=== PATIENT | male | born 1965 | race Caucasian/White ===

== ENCOUNTER 2017-11-09 09:41 | Outpatient (RCR) | payer MEDICARE, MEDICAID | END 2017-12-03 | LOC: M PT 09:41 | DX: G80.1 Spastic diplegic cerebral palsy (principal); S39.012A Strain of muscle, fascia and tendon of lower back, initial encounter; X58.XXXA Exposure to other specified factors, initial encounter; Y92.9 Unspecified place or not applicable | CPT/HCPCS: 97110 ==

== ENCOUNTER 2017-12-04 10:49 | Outpatient (RCR) | payer MEDICARE, MEDICAID | END 2018-01-03 | LOC: M PT 12-06 10:54 | DX: G80.1 Spastic diplegic cerebral palsy (principal); S39.012A Strain of muscle, fascia and tendon of lower back, initial encounter; X58.XXXA Exposure to other specified factors, initial encounter; Y92.9 Unspecified place or not applicable | CPT/HCPCS: 97110 ==

== ENCOUNTER 2018-01-08 11:05 | Outpatient (RCR) | payer MEDICARE, MEDICAID | END 2018-02-02 | LOC: M PT 11:05 | DX: Z51.89 Encounter for other specified aftercare (principal); M54.5 Low back pain; G80.9 Cerebral palsy, unspecified | CPT/HCPCS: 97110 ==

== ENCOUNTER 2018-02-05 11:49 | Outpatient (RCR) | payer MEDICARE, MEDICAID | END 2018-03-05 | LOC: M PT 02-13 11:00 | DX: Z51.89 Encounter for other specified aftercare (principal); G80.9 Cerebral palsy, unspecified; R26.2 Difficulty in walking, not elsewhere classified; M54.5 Low back pain | CPT/HCPCS: 97110 ==

== ENCOUNTER 2018-03-07 11:23 | Outpatient (RCR) | payer MEDICARE, MEDICAID | END 2018-04-05 | LOC: M PT 11:23 | DX: Z51.89 Encounter for other specified aftercare (principal); S39.012A Strain of muscle, fascia and tendon of lower back, initial encounter; G80.1 Spastic diplegic cerebral palsy | CPT/HCPCS: 97110 ==

== ENCOUNTER 2018-04-11 09:48 | Outpatient (RCR) | payer MEDICARE, MEDICAID | END 2018-05-05 | LOC: M PT 04-16 10:43 | DX: Z51.89 Encounter for other specified aftercare (principal); G80.1 Spastic diplegic cerebral palsy | CPT/HCPCS: 97110 ==

== ENCOUNTER 2018-05-07 10:56 | Outpatient (RCR) | payer MEDICARE, MEDICAID | END 2018-06-05 | LOC: M PT 10:56 | DX: G80.1 Spastic diplegic cerebral palsy (principal); M54.5 Low back pain | CPT/HCPCS: 97110 ==

== ENCOUNTER 2018-06-06 11:07 | Outpatient (RCR) | payer MEDICARE, MEDICAID | END 2018-07-05 | LOC: M PT 11:07 | DX: M54.5 Low back pain (principal); G80.1 Spastic diplegic cerebral palsy | CPT/HCPCS: 97110 ==

== ENCOUNTER 2018-11-27 10:15 | Outpatient (RCR) | payer MEDICARE, MEDICAID | END 2018-12-03 | LOC: M PT 10:15 | PROVIDERS: ATTEND Orthopaedic Surgery | DX: M54.5 Low back pain (principal); G80.1 Spastic diplegic cerebral palsy ==

== ENCOUNTER 2019-01-01 10:15 | Outpatient (RCR) | payer MEDICARE, MEDICAID | END 2019-01-03 | LOC: M PT 10:15 | PROVIDERS: ATTEND Orthopaedic Surgery | DX: M54.5 Low back pain (principal); G80.1 Spastic diplegic cerebral palsy ==

== ENCOUNTER 2019-01-29 10:15 | Outpatient (RCR) | payer MEDICARE, MEDICAID | END 2019-02-02 | LOC: M PT 10:15 | PROVIDERS: ATTEND Orthopaedic Surgery | DX: M54.5 Low back pain (principal); G80.1 Spastic diplegic cerebral palsy ==

== ENCOUNTER → 2019-02-21 | Outpatient (REF) | payer MEDICARE, MEDICAID ==
[2019-02-21 11:56] LABS: BASO # 0.1 10^3/uL (0.0-0.2); BASO % 0.9 % (0.0-1.0); EOS # 0.2 10^3/uL (0.0-0.50); EOS % 3.9 % (0.0-3.0); HEMATOCRIT 47.3 % (42.0-52.0); HEMOGLOBIN 15.6 g/dl (13.5-17.5); LYMPH # 1.8 10^3/uL (1.5-4.5); LYMPH % 30.8 % (24.0-44.0); MEAN CORPUSCULAR HEMOGLOBIN 29.6 pg (27.0-33.0); MEAN CORPUSCULAR VOLUME 89.8 fl (80.0-96.0); MONO # 0.4 10^3/uL (0.0-0.8); MONO % 6.9 % (0.0-5.0); NEUTROPHILS # 3.3 10^3/uL (1.8-7.7); NEUTROPHILS % 57.3 % (36.0-66.0); PLATELET COUNT, AUTOMATED 226 10^3/uL (150-450); RED BLOOD COUNT 5.27 10^6/uL (4.30-6.10); WHITE BLOOD COUNT 5.7 10^3/uL (4.0-10.0)
[2019-02-21 12:16] LABS: HEMOGLOBIN A1c 5.3 %
[2019-02-21 13:13] LABS: ALBUMIN 4.4 GM/DL (3.2-5.2); ALT/SGPT 16 U/L (12-78); BILIRUBIN,TOTAL 1.4 MG/DL (0.2-1.0); BLOOD UREA NITROGEN 15 MG/DL (7-18); CALCIUM LEVEL 9.5 MG/DL (8.5-10.1); CARBON DIOXIDE LEVEL 24 MEQ/L (21-32); CHLORIDE LEVEL 105 MEQ/L (98-107); CHOLESTEROL LEVEL 160 MG/DL (<200); CHOLESTEROL RISK RATIO 3.333 (<5); CREATININE FOR GFR 1.05 MG/DL (0.70-1.30); FREE T4 1.41 NG/DL (0.76-1.46); GLOMERULAR FILTRATION RATE > 60.0 (>56); GLUCOSE, FASTING 72 MG/DL (70-100); HDL CHOLESTEROL 48 MG/DL (>40); LDL CHOLESTEROL 97 MG/DL (<100); NON-HDL-C 112 MG/DL; POTASSIUM SERUM 4.1 MEQ/L (3.5-5.1); SODIUM LEVEL 141 MEQ/L (136-145); TOTAL PROTEIN 7.6 GM/DL (6.4-8.2); TRIGLYCERIDES LEVEL 75 MG/DL (<150)
[2019-02-21 13:21] LABS: TOTAL 25(OH) VITAMIN D 15.7 NG/ML (30.0-100.0)
== END ==
LOC: M SFHCPLAZ 08:43
PROVIDERS: ATTEND Nurse Practitioner Family
DX: E55.9 Vitamin D deficiency, unspecified (principal); Z13.228 Encounter for screening for other metabolic disorders; Z13.220 Encounter for screening for lipoid disorders

== ENCOUNTER → 2019-03-05 | Outpatient (RCR) | payer MEDICARE, MEDICAID | LOC: M PT 02-05 10:08 | PROVIDERS: ATTEND Nurse Practitioner Family | DX: Z51.89 Encounter for other specified aftercare (principal); M54.5 Low back pain ==

== ENCOUNTER 2019-04-04 13:45 | Outpatient (RCR) | payer MEDICARE, MEDICAID | END 2019-04-05 | LOC: M PT 13:45 | PROVIDERS: ATTEND Nurse Practitioner Family | DX: Z51.89 Encounter for other specified aftercare (principal); M54.5 Low back pain ==

== ENCOUNTER → 2019-05-05 | Outpatient (RCR) | payer MEDICARE, MEDICAID | LOC: M PT 04-16 11:47 | PROVIDERS: ATTEND Nurse Practitioner Family | DX: G80.1 Spastic diplegic cerebral palsy (principal) ==

== ENCOUNTER 2019-06-04 14:30 | Outpatient (RCR) | payer MEDICARE, MEDICAID | END 2019-06-05 | LOC: M PT 14:30 | PROVIDERS: ATTEND Nurse Practitioner Family | DX: G80.1 Spastic diplegic cerebral palsy (principal); R26.89 Other abnormalities of gait and mobility ==

== ENCOUNTER 2019-06-09 13:55 | Outpatient (RCR) | payer MEDICARE, MEDICAID | END 2019-07-05 | LOC: M PT 13:55 | PROVIDERS: ATTEND Nurse Practitioner Family | DX: Z47.89 Encounter for other orthopedic aftercare (principal) ==

== ENCOUNTER 2024-05-31 14:05 | Inpatient (IN) | payer MEDICARE, MEDICAID ==
[~2024-05-31] VITALS: Ht 182.9 cm; Wt 99.7 kg
[2024-05-31 14:58] LABS: HEMATOCRIT 29.6 % (42.0-52.0); HEMOGLOBIN 8.5 g/dl (13.5-17.5); MEAN CORPUSCULAR HEMOGLOBIN 20.2 pg (27.0-33.0); MEAN CORPUSCULAR HGB CONC 28.7 g/dl (32.0-36.5); MEAN CORPUSCULAR VOLUME 70.5 fl (80.0-96.0); PLATELET COUNT, AUTOMATED 393 10^3/uL (150-450); WHITE BLOOD COUNT 6.6 10^3/uL (4.0-10.0)
[2024-05-31 15:23] LABS: ALBUMIN 3.4 G/DL (3.2-5.2); ALKALINE PHOSPHATASE 124 U/L (40-129); ALT/SGPT 17 U/L (7.0-40); AST/SGOT 22 U/L (<34); BILIRUBIN,TOTAL 0.9 MG/DL (0.3-1.2); BLOOD UREA NITROGEN 15 MG/DL (9-23); CALCIUM LEVEL 9.5 MG/DL (8.5-10.1); CARBON DIOXIDE LEVEL 27 MMOL/L (20-31); CHLORIDE LEVEL 107 MMOL/L (98-107); CREATININE FOR GFR 0.92 MG/DL (0.70-1.30); GLOMERULAR FILTRATION RATE > 60.0 (>56); GLUCOSE, FASTING 93 MG/DL (60-100); POTASSIUM SERUM 4.1 MMOL/L (3.5-5.1); SODIUM LEVEL 141 MMOL/L (136-145); TOTAL PROTEIN 6.8 G/DL (5.7-8.2)
[2024-05-31] MEDS ORDERED: ISOVUE-370 76% 100ML VIAL As Ordered ONE (15:58)
[2024-05-31] MEDS: FUROSEMIDE 20MG/2ML VIAL IV ONE (18:16)
[2024-05-31] MEDS ORDERED: HOME MED LIST COMPLETE! XX SCH (18:20)
[2024-05-31] MEDS ORDERED: MAALOX 30 ML SUSP *UDC PO PRN (19:15)
[2024-05-31] MEDS ORDERED: MOM 30ML SUSPENSION UDC PO PRN (19:15)
[2024-05-31 19:34] LABS: MAGNESIUM LEVEL 2.1 MG/DL (1.8-2.4)
[2024-05-31 19:36] LABS: CPK CREATINE PHOSPHOKINASE 378 U/L (46-171)
[2024-05-31 19:38] LABS: FREE THYROXINE INDEX 3.9 % (1.4-3.8); T UPTAKE 40.1 % (22.5-37.0); THYROID STIMULATING HORMONE 2.204 uIU/ML (0.55-4.78); THYROXINE (T4) 9.8 UG/DL (4.5-10.9)
[2024-05-31 19:55] LABS: BASO % 0.5 % (0.0-1.0); EOS # 0.1 10^3/uL (0.0-0.5); EOS % 0.9 % (0.0-3.0); HEMATOCRIT 30.9 % (42.0-52.0); LYMPH # 0.8 10^3/uL (1.5-5.0); LYMPH % 10.8 % (24.0-44.0); MEAN CORPUSCULAR HEMOGLOBIN 20.3 pg (27.0-33.0); MEAN CORPUSCULAR HGB CONC 29.1 g/dl (32.0-36.5); MEAN CORPUSCULAR VOLUME 69.6 fl (80.0-96.0); MONO # 0.4 10^3/uL (0.0-0.8); MONO % 5.4 % (2.0-8.0); NEUTROPHILS # 6.1 10^3/uL (1.5-8.5); NEUTROPHILS % 82.1 % (36.0-66.0); PLATELET COUNT, AUTOMATED 415 10^3/uL (150-450); RED BLOOD COUNT 4.44 10^6/uL (4.30-6.10); WHITE BLOOD COUNT 7.4 10^3/uL (4.0-10.0)
[2024-05-31 20:04] LABS: IRON (FE) 16 UG/DL (65-175); PERCENT SATURATION 3.9 % (19.7-50.0); TOTAL IRON BINDING CAPACITY 406 UG/DL (250-425)
[2024-05-31 20:06] LABS: FERRITIN 13.9 NG/ML (10.5-307.3)
[2024-05-31] MEDS: DOCUSATE SODIUM 100MG CAPSULE PO SCH (20:07)
[2024-05-31] MEDS: PANTOPRAZOLE 40MG TAB (PROTONIX) PO SCH (20:07)
[2024-05-31] MEDS: POTASSIUM CHLORIDE 10MEQ SR TABLET PO SCH (20:07)
[2024-05-31 20:09] LABS: INR 1.08; PARTIAL THROMBOPLASTIN TIME 30.4 SECONDS (24.8-34.2); PROTHROMBIN TIME 14.3 SECONDS (12.5-14.5)
[2024-05-31 20:21] LABS: CK-MB VALUE MASS 4.5 NG/ML (<3.6); MB/CK RELATIVE INDEX 1.07 (< OR =4)
[2024-06-01 06:36] LABS: HEMATOCRIT 28.4 % (42.0-52.0); HEMOGLOBIN 8.1 g/dl (13.5-17.5); MEAN CORPUSCULAR HEMOGLOBIN 20.3 pg (27.0-33.0); MEAN CORPUSCULAR HGB CONC 28.5 g/dl (32.0-36.5); MEAN CORPUSCULAR VOLUME 71.2 fl (80.0-96.0); PLATELET COUNT, AUTOMATED 388 10^3/uL (150-450); RED BLOOD COUNT 3.99 10^6/uL (4.30-6.10); WHITE BLOOD COUNT 8.4 10^3/uL (4.0-10.0)
[2024-06-01 07:06] LABS: ALKALINE PHOSPHATASE 110 U/L (40-129); ALT/SGPT 18 U/L (7.0-40); AST/SGOT 34 U/L (<34); BILIRUBIN,TOTAL 0.7 MG/DL (0.3-1.2); BLOOD UREA NITROGEN 13 MG/DL (9-23); CALCIUM LEVEL 9.1 MG/DL (8.5-10.1); CARBON DIOXIDE LEVEL 27 MMOL/L (20-31); CHLORIDE LEVEL 108 MMOL/L (98-107); GLOMERULAR FILTRATION RATE > 60.0 (>56); GLUCOSE, FASTING 91 MG/DL (60-100); MAGNESIUM LEVEL 2.1 MG/DL (1.8-2.4); POTASSIUM SERUM 4.2 MMOL/L (3.5-5.1); SODIUM LEVEL 140 MMOL/L (136-145); TOTAL PROTEIN 6.1 G/DL (5.7-8.2)
[2024-06-01] MEDS: FUROSEMIDE 20 MG TAB PO SCH (10:14)
[2024-06-01] MEDS: FERROUS SULFATE 325MG TAB PO SCH (10:14)
[2024-06-01] MEDS: ACETAMINOPHEN 325 MG TAB PO PRN (11:53)
[2024-06-01 12:10] VITALS: BP 129/56; TEMP 98.9; O2SAT 95
[2024-06-01 13:29] VITALS: BP 122/76; TEMP 96.7; O2SAT 97
[2024-06-01] MEDS: IRON SUCROSE 200 MG in NS 100 ML IV SCH (15:56)
[2024-06-01 15:57] VITALS: BP 112/58; O2SAT 97
[2024-06-01 20:07] VITALS: BP 106/52; TEMP 98.2; O2SAT 93
[2024-06-01 23:29] VITALS: BP 108/56; TEMP 97.1; O2SAT 96
[2024-06-02] VITALS (7 sets, daily range): BP systolic 112–136; BP diastolic 55–66; TEMP 97.6–98.6; O2SAT 94–97
[2024-06-02 05:19] LABS: BASO % 0.4 % (0.0-1.0); EOS # 0.4 10^3/uL (0.0-0.5); HEMATOCRIT 28.2 % (42.0-52.0); HEMOGLOBIN 8.1 g/dl (13.5-17.5); LYMPH # 1.7 10^3/uL (1.5-5.0); LYMPH % 21.2 % (24.0-44.0); MEAN CORPUSCULAR HEMOGLOBIN 20.5 pg (27.0-33.0); MEAN CORPUSCULAR HGB CONC 28.7 g/dl (32.0-36.5); MEAN CORPUSCULAR VOLUME 71.2 fl (80.0-96.0); MONO # 0.8 10^3/uL (0.0-0.8); MONO % 9.7 % (2.0-8.0); NEUTROPHILS # 5.1 10^3/uL (1.5-8.5); NEUTROPHILS % 63.3 % (36.0-66.0); PLATELET COUNT, AUTOMATED 359 10^3/uL (150-450); RED BLOOD COUNT 3.96 10^6/uL (4.30-6.10)
[2024-06-02 05:51] LABS: BLOOD UREA NITROGEN 12 MG/DL (9-23); CALCIUM LEVEL 8.5 MG/DL (8.5-10.1); CARBON DIOXIDE LEVEL 26 MMOL/L (20-31); CHLORIDE LEVEL 110 MMOL/L (98-107); CREATININE FOR GFR 0.89 MG/DL (0.70-1.30); GLOMERULAR FILTRATION RATE > 60.0 (>56); GLUCOSE, FASTING 92 MG/DL (60-100); POTASSIUM SERUM 4.2 MMOL/L (3.5-5.1); SODIUM LEVEL 141 MMOL/L (136-145)
[2024-06-02] MEDS: FUROSEMIDE 40MG/4ML VIAL IV SCH ×2 (10:43→18:36)
[2024-06-02] MEDS ORDERED: FUROSEMIDE 40MG/4ML VIAL IV SCH (12:50)
[2024-06-03] VITALS (28 sets, daily range): BP systolic 111–140; BP diastolic 56–68; TEMP 97.1–98; O2SAT 89–99
[2024-06-03 06:09] LABS: BASO % 0.4 % (0.0-1.0); EOS # 0.4 10^3/uL (0.0-0.5); EOS % 4.2 % (0.0-3.0); HEMATOCRIT 31.7 % (42.0-52.0); HEMOGLOBIN 9.1 g/dl (13.5-17.5); LYMPH # 1.9 10^3/uL (1.5-5.0); MEAN CORPUSCULAR HEMOGLOBIN 20.2 pg (27.0-33.0); MEAN CORPUSCULAR HGB CONC 28.7 g/dl (32.0-36.5); MEAN CORPUSCULAR VOLUME 70.3 fl (80.0-96.0); MONO # 0.8 10^3/uL (0.0-0.8); PLATELET COUNT, AUTOMATED 426 10^3/uL (150-450); RED BLOOD COUNT 4.51 10^6/uL (4.30-6.10); WHITE BLOOD COUNT 9.2 10^3/uL (4.0-10.0)
[2024-06-03 06:27] LABS: BLOOD UREA NITROGEN 17 MG/DL (9-23); CARBON DIOXIDE LEVEL 28 MMOL/L (20-31); CHLORIDE LEVEL 106 MMOL/L (98-107); CREATININE FOR GFR 0.99 MG/DL (0.70-1.30); GLOMERULAR FILTRATION RATE > 60.0 (>56); GLUCOSE, FASTING 96 MG/DL (60-100); POTASSIUM SERUM 4.1 MMOL/L (3.5-5.1); SODIUM LEVEL 139 MMOL/L (136-145)
[2024-06-04] VITALS (10 sets, daily range): BP systolic 105–121; BP diastolic 57–63; TEMP 97.4–98.5; O2SAT 91–97
[2024-06-04] MEDS: TORSEMIDE 20 MG TAB PO SCH (08:40)
[2024-06-05] VITALS (7 sets, daily range): BP systolic 109–128; BP diastolic 57–82; TEMP 97.1–97.9; O2SAT 94–97
[2024-06-05 07:38] LABS: HEMATOCRIT 32.5 % (42.0-52.0); HEMOGLOBIN 9.2 g/dl (13.5-17.5); MEAN CORPUSCULAR HEMOGLOBIN 20.5 pg (27.0-33.0); MEAN CORPUSCULAR HGB CONC 28.3 g/dl (32.0-36.5); MEAN CORPUSCULAR VOLUME 72.4 fl (80.0-96.0); PLATELET COUNT, AUTOMATED 415 10^3/uL (150-450); RED BLOOD COUNT 4.49 10^6/uL (4.30-6.10); WHITE BLOOD COUNT 8.7 10^3/uL (4.0-10.0)
[2024-06-05 08:02] LABS: ALKALINE PHOSPHATASE 94 U/L (40-129); ALT/SGPT 21 U/L (7.0-40); AST/SGOT 20 U/L (<34); BILIRUBIN,TOTAL 0.5 MG/DL (0.3-1.2); BLOOD UREA NITROGEN 20 MG/DL (9-23); CARBON DIOXIDE LEVEL 26 MMOL/L (20-31); CHLORIDE LEVEL 104 MMOL/L (98-107); CREATININE FOR GFR 0.93 MG/DL (0.70-1.30); GLOMERULAR FILTRATION RATE > 60.0 (>56); GLUCOSE, FASTING 97 MG/DL (60-100); POTASSIUM SERUM 4.2 MMOL/L (3.5-5.1); SODIUM LEVEL 137 MMOL/L (136-145); TOTAL PROTEIN 6.6 G/DL (5.7-8.2)
[2024-06-06 03:49] VITALS: BP 121/71; TEMP 97.7; O2SAT 92
[2024-06-06 08:46] VITALS: BP 136/63; TEMP 99.7; O2SAT 95
[2024-06-06 12:21] VITALS: BP 122/71; TEMP 97.2; O2SAT 92
[2024-06-06 20:43] VITALS: BP 125/75; TEMP 97.7; O2SAT 97
[2024-06-07 04:14] VITALS: BP 113/69; TEMP 98.2; O2SAT 95
[2024-06-07 07:54] VITALS: BP 127/61; TEMP 98.5; O2SAT 90
[2024-06-07 20:05] VITALS: BP 122/60; TEMP 97.8; O2SAT 96
[2024-06-07 23:48] VITALS: BP 135/74; TEMP 97.7; O2SAT 95
[2024-06-08 03:24] VITALS: BP 125/76; TEMP 97.1; O2SAT 97
[2024-06-08 03:40] VITALS: BP 115/58; TEMP 97.4; O2SAT 99
[2024-06-08 08:25] VITALS: BP 118/58; TEMP 97.2; O2SAT 96
[2024-06-08 19:47] VITALS: BP 131/61; TEMP 97.9; O2SAT 96
[2024-06-08 19:53] VITALS: BP 150/70; TEMP 97.1; O2SAT 98
[2024-06-08 23:56] VITALS: BP 124/57; TEMP 97.8; O2SAT 97
[2024-06-09 03:42] VITALS: BP 118/55; TEMP 98.2; O2SAT 95
[2024-06-09] MEDS ORDERED: MOM30SS2 PO (10:28)
[2024-06-09] MEDS ORDERED: ACET32TAB PO (10:28)
[2024-06-09] MEDS ORDERED: FERR1TAB8 PO (10:28)
[2024-06-09] MEDS ORDERED: COLA100C5 PO (10:28)
[2024-06-09] MEDS ORDERED: POTA-136 PO (10:28)
[2024-06-09] MEDS ORDERED: PANT40TA29 PO (10:28)
[2024-06-09] MEDS ORDERED: TORS20TA2 PO (10:28)
[2024-06-09] MEDS ORDERED: MYLASSUD PO (10:28)
== END 2024-06-09 11:43 | DRG 948 ==
LOC: M ED 14:05 → M ED INP 19:12 → M PCU 06-01 13:42
PROVIDERS: ADMIT Student in an Organized Health Care Education/Training Program; ATTEND Student in an Organized Health Care Education/Training Program
DX: R60.0 Localized edema (principal); G80.1 Spastic diplegic cerebral palsy; I45.10 Unspecified right bundle-branch block; D50.9 Iron deficiency anemia, unspecified; R55 Syncope and collapse; M19.90 Unspecified osteoarthritis, unspecified site; Z99.3 Dependence on wheelchair

== ENCOUNTER → 2024-06-27 | Outpatient (REF) | payer MEDICARE, MEDICAID ==
[~2024-06-27] MED LIST: ACET32TAB PO; COLA100C5 PO; FERR1TAB8 PO; MOM30SS2 PO; MYLASSUD PO; PANT40TA29 PO; POTA-136 PO; TORS20TA2 PO
[2024-06-27 17:10] LABS: BASO % 0.4 % (0.0-1.0); EOS # 0.2 10^3/uL (0.0-0.5); EOS % 1.6 % (0.0-3.0); HEMOGLOBIN 13.2 g/dl (13.5-17.5); LYMPH # 2.3 10^3/uL (1.5-5.0); LYMPH % 22.8 % (24.0-44.0); MEAN CORPUSCULAR HEMOGLOBIN 22.8 pg (27.0-33.0); MONO # 0.7 10^3/uL (0.0-0.8); NEUTROPHILS # 6.7 10^3/uL (1.5-8.5); PLATELET COUNT, AUTOMATED 333 10^3/uL (150-450); RED BLOOD COUNT 5.79 10^6/uL (4.30-6.10); WHITE BLOOD COUNT 9.9 10^3/uL (4.0-10.0)
[2024-06-27 17:15] LABS: IRON (FE) 39 UG/DL (65-175); PERCENT SATURATION 10.1 % (19.7-50.0); TOTAL IRON BINDING CAPACITY 388 UG/DL (250-425)
[2024-06-27 17:16] LABS: FERRITIN 49.2 NG/ML (10.5-307.3); THYROID STIMULATING HORMONE 2.432 uIU/ML (0.55-4.78)
[2024-06-27 17:17] LABS: ALKALINE PHOSPHATASE 135 U/L (40-129); ALT/SGPT 20 U/L (7.0-40); AST/SGOT 13 U/L (<34); BILIRUBIN,TOTAL 0.6 MG/DL (0.3-1.2); BLOOD UREA NITROGEN 20 MG/DL (9-23); CALCIUM LEVEL 10.1 MG/DL (8.5-10.1); CARBON DIOXIDE LEVEL 26 MMOL/L (20-31); CHLORIDE LEVEL 103 MMOL/L (98-107); CHOLESTEROL LEVEL 179 MG/DL (<200); GLOMERULAR FILTRATION RATE > 60.0 (>56); GLUCOSE, FASTING 91 MG/DL (60-100); HDL CHOLESTEROL 43.6 MG/DL (>40); NON-HDL-C 135.4 MG/DL; POTASSIUM SERUM 4.2 MMOL/L (3.5-5.1); SODIUM LEVEL 141 MMOL/L (136-145); TOTAL 25(OH) VITAMIN D 18.4 NG/ML (20.0-100.0); TRIGLYCERIDES LEVEL 107 MG/DL (<150)
[2024-06-27 17:42] LABS: HEMOGLOBIN A1c 5.2 % (4.0-6.0)
== END ==
LOC: M LAB REF 16:29
PROVIDERS: ATTEND Physician Assistant
DX: E55.9 Vitamin D deficiency, unspecified (principal); N18.9 Chronic kidney disease, unspecified; D50.9 Iron deficiency anemia, unspecified; R60.0 Localized edema; Z13.89 Encounter for screening for other disorder; Z79.899 Other long term (current) drug therapy

== ENCOUNTER → 2025-02-25 | Outpatient (REF) | payer MEDICARE, MEDICAID ==
[~2025-02-25] MED LIST changes: +MAG30ORA18 PO; -MYLASSUD PO
[2025-02-25 15:21] LABS: BASO # 0.0 10^3/uL (0.0-0.2); BASO % 0.6 % (0.0-1.0); EOS # 0.3 10^3/uL (0.0-0.5); EOS % 4.1 % (0.0-3.0); LYMPH # 1.9 10^3/uL (1.5-5.0); LYMPH % 27.3 % (24.0-44.0); MONO # 0.7 10^3/uL (0.0-0.8); MONO % 9.4 % (2.0-8.0); NEUTROPHILS # 4.1 10^3/uL (1.5-8.5); NEUTROPHILS % 58.3 % (36.0-66.0); PLATELET COUNT, AUTOMATED 270 10^3/uL (150-450)
[2025-02-25 15:25] LABS: CALCIUM LEVEL 9.2 MG/DL (8.5-10.1); CARBON DIOXIDE LEVEL 26.0 MMOL/L (20-31); CHLORIDE LEVEL 104.0 MMOL/L (98-107); CREATININE FOR GFR 1.09 MG/DL (0.70-1.30); GLOMERULAR FILTRATION RATE 78.2 (>56); IRON (FE) 61.0 UG/DL (65-175); PERCENT SATURATION 16.8 % (19.7-50.0); POTASSIUM SERUM 4.9 MMOL/L (3.5-5.1); SODIUM LEVEL 144.0 MMOL/L (136-145)
== END ==
LOC: M LAB REF 14:14
PROVIDERS: ATTEND Physician Assistant
DX: D50.9 Iron deficiency anemia, unspecified (principal); N18.9 Chronic kidney disease, unspecified